=== PATIENT | male | born 1940 | race Caucasian/White ===

== ENCOUNTER → 2021-02-26 11:37 | Outpatient (CLI) | payer MEDICARE, OTHER, SELFPAY | PROVIDERS: Visit Provider Physician Assistant | DX: N39.0 Urinary tract infection, site not specified (principal) | CPT/HCPCS: 87077; 87086; 87186 ==

== ENCOUNTER → 2025-02-28 09:35 | Outpatient (CLI) | payer MEDICARE, SELFPAY ==
[2025-02-28 10:17] LABS: Influenza A - CEPHEID Flu A NEGATIVE (NEGATIVE); Influenza B - CEPHEID Flu B NEGATIVE (NEGATIVE)
[2025-02-28 10:19] LABS: COVID-19 CEPHEID 4-PLEX PCR Negative (Negative)
== END ==
PROVIDERS: Visit Provider Chiropractor
DX: R05.1 Acute cough (principal)
CPT/HCPCS: 87637

== ENCOUNTER → 2025-02-28 12:35 | Outpatient (CLI) | payer MEDICARE, SELFPAY ==
--- NOTE | 2025-02-28 12:46 | DI.RAD.S_ITS ---
PROCEDURE: XR CHEST 2V INDICATIONS: Concern for pneumonia TECHNIQUE: 2 views of the chest were acquired. COMPARISON: None. FINDINGS AND IMPRESSION: No airspace consolidation or pleural effusion. Normal heart size. Degenerative osseous changes. Dictated by: Earl Park M.D. on 02/28/2025 at 12:48 Approved by: Earl Park M.D. on 02/28/2025 at 12:49
== END ==
PROVIDERS: Referring Provider Chiropractor; Visit Provider Chiropractor
DX: R05.1 Acute cough (principal)
CPT/HCPCS: 71046; 87637